=== PATIENT | male | born 1950 | race Caucasian/White ===

== ENCOUNTER 2020-11-19 23:01 | Inpatient (IN) | payer MEDICARE, OTHER ==
[~2020-11-19] VITALS: Ht 185.4 cm; Wt 167.8 kg
[2020-11-21] MEDS ORDERED: SIMVASTATIN20 MG PO (01:44)
[2020-11-21] MEDS ORDERED: SERTRALINE HCL50 MG PO (01:44)
[2020-11-21] MEDS ORDERED: FLONASE 0.05% N16 GM (01:45)
[2020-11-21] MEDS ORDERED: MELOXICAM15 MG PO (01:45)
[2020-11-21] MEDS ORDERED: FUROSEMIDE40 MG PO (01:45)
[2020-11-21] MEDS ORDERED: AMLODIPINE BESY10 MG PO (01:45)
[2020-11-21] MEDS ORDERED: MICRO-K EXTENCA8 MEQ PO (01:45)
[2020-11-21] MEDS ORDERED: BISOPROLOL-HCT1 EAC1 PO (01:46)
[2020-11-21] MEDS ORDERED: DESYREL 50 MG T50 MG PO (01:46)
--- NOTE | 2020-11-21 02:18 | NUR ---
AT 0100 UPON ASSESSMENT OF PT UPON ARRIVAL TO THE FACILITY, VS OBTAINED WAS BP 189/53, PULSE RANGING FROM 38-65, RR 26, TEMP 98.1 ORALLY, AND O2 SAT 74% ON HFNC AT 15 L/MIN. IMMEDIATELY NOTIFIED. ORDERS TO OBTAIN STAT EKG, PLACE ON CONTINUOUS TELE/PULSE OX MONITORING, AND PLACE ON AIRVO. MD STATED TO LET HIM KNOW O2 SAT ON AIRVO. MD THEN ALERTED THAT O2 WAS ONLY 87-91% MAXED OUT ON AIRVO AT 60 L/MIN AT 95% FiO2. STATED HE WAS COMING TO THE FLOOR TO EVALUATE PT. WHEN MD ARRIVED TO FLOOR, MD WAS GIVEN EKG FOR INTERPRETATION, MD WAS INFORMED THAT PT STATED HE HAD NOT TAKEN LASIX SINCE "LAST TUESDAY". WCTM. SEE MD ORDERS FOR MORE INFO
[2020-11-21 03:43] LABS: HEMOGLOBIN 15.9 gm/dl (14.0-17.5); RED BLOOD COUNT 5.39 M/UL (4.20-5.50); WHITE BLOOD COUNT 17.7 K/UL (4.5-11.0)
--- NOTE | 2020-11-21 12:21 | NUR ---
PT EATING LUNCH. O2 82% PER TELE. PATIENT REFUSES TO HAVE BIPAP PLACED BACK ON UNTIL HE FINISHED EATING DESPITE BEING EDUCATED ON THE IMPORTANCE OF MAINING GOOD SATURATION AND OXYGENATION THROUGHOUT THE BODY. RT HAS ALSO EDUCATED THE PT ON THIS AND MD IS AWARE. SHANNAN.
[2020-11-22 03:33] LABS: HEMOGLOBIN 16.4 gm/dl (14.0-17.5); RED BLOOD COUNT 5.58 M/UL (4.20-5.50); WHITE BLOOD COUNT 15.7 K/UL (4.5-11.0)
[2020-11-23 05:46] LABS: HEMOGLOBIN 15.3 gm/dl (14.0-17.5); RED BLOOD COUNT 5.07 M/UL (4.20-5.50); WHITE BLOOD COUNT 16.5 K/UL (4.5-11.0)
[2020-11-24 07:44] LABS: HEMOGLOBIN 15.1 gm/dl (14.0-17.5); RED BLOOD COUNT 4.88 M/UL (4.20-5.50)
[2020-11-24 07:53] LABS: WHITE BLOOD COUNT 30.8 K/UL (4.5-11.0)
--- NOTE | 2020-11-24 12:33 | NUR ---
PT WEDDING BAND PLACED IN DENTURE CUP WITH PT LABEL AT BEDSIDE R/T SWELLING
[2020-11-25 05:24] LABS: HEMOGLOBIN 13.5 gm/dl (14.0-17.5); RED BLOOD COUNT 4.52 M/UL (4.20-5.50)
[2020-11-25 05:47] LABS: WHITE BLOOD COUNT 35.8 K/UL (4.5-11.0)
== END 2020-11-27 17:14 | disposition expired | DRG 207 ==
LOC: MED SURG 4 23:01 → M/S 11-21 00:59 → CCU 11-21 00:59 → PROG CARE 11-21 14:06 → CCU 11-22 20:35
PROVIDERS: Internal Medicine; Internal Medicine Nephrology; ADMIT Internal Medicine
PROC: 8E0ZXY6 Isolation (ICD-10-PCS; 2020-11-21)
PROC: XW033E5 Introduction of Remdesivir Anti-infective into Peripheral Vein, Percutaneous Approach, New Technology Group 5 (ICD-10-PCS; 2020-11-21)
PROC: 3E0333Z Introduction of Anti-inflammatory into Peripheral Vein, Percutaneous Approach (ICD-10-PCS; 2020-11-21)
PROC: 0DH67UZ Insertion of Feeding Device into Stomach, Via Natural or Artificial Opening (ICD-10-PCS; 2020-11-21)
PROC: B24BZZZ Ultrasonography of Heart with Aorta (ICD-10-PCS; 2020-11-21)
PROC: XW033H5 Introduction of Tocilizumab into Peripheral Vein, Percutaneous Approach, New Technology Group 5 (ICD-10-PCS; 2020-11-21)
PROC: 0BH18EZ Insertion of Endotracheal Airway into Trachea, Via Natural or Artificial Opening Endoscopic (ICD-10-PCS; principal; 2020-11-22)
PROC: 5A1955Z Respiratory Ventilation, Greater than 96 Consecutive Hours (ICD-10-PCS; principal; 2020-11-22)
PROC: 06HY33Z Insertion of Infusion Device into Lower Vein, Percutaneous Approach (ICD-10-PCS; 2020-11-27)
PROC: 5A1D70Z Performance of Urinary Filtration, Intermittent, Less than 6 Hours Per Day (ICD-10-PCS; 2020-11-27)
PROC: 3E033XZ Introduction of Vasopressor into Peripheral Vein, Percutaneous Approach (ICD-10-PCS; 2020-11-27)
DX: U07.1 COVID-19 (principal); J12.82 Pneumonia due to coronavirus disease 2019; J80 Acute respiratory distress syndrome; J15.9 Unspecified bacterial pneumonia; A41.9 Sepsis, unspecified organism; R65.20 Severe sepsis without septic shock; E87.1 Hypo-osmolality and hyponatremia; N17.9 Acute kidney failure, unspecified; E87.2 Acidosis; J98.11 Atelectasis; J44.0 Chronic obstructive pulmonary disease with (acute) lower respiratory infection; Z68.42 Body mass index [BMI] 45.0-49.9, adult; E66.2 Morbid (severe) obesity with alveolar hypoventilation; I13.0 Hypertensive heart and chronic kidney disease with heart failure and stage 1 through stage 4 chronic kidney disease, or unspecified chronic kidney disease; I50.32 Chronic diastolic (congestive) heart failure; Z51.5 Encounter for palliative care; Z66 Do not resuscitate; Z23 Encounter for immunization; I87.8 Other specified disorders of veins; E87.5 Hyperkalemia; E78.5 Hyperlipidemia, unspecified; N18.9 Chronic kidney disease, unspecified; R73.03 Prediabetes; R73.9 Hyperglycemia, unspecified; Z90.49 Acquired absence of other specified parts of digestive tract; Z88.0 Allergy status to penicillin; Z88.2 Allergy status to sulfonamides; Z83.3 Family history of diabetes mellitus; Z98.890 Other specified postprocedural states; Z79.4 Long term (current) use of insulin
CPT/HCPCS: ECHO; 31500; 36415; 36600; 71045; 80048; 80053; 80202; 82009; 82533; 82570; 82803; 82962; 83036; 83735; 83880; 84132; 84133; 84156; 84300; 85007; 85025; 85027; 85379; 86140; 89050; 93005; 93306; 93970; 94002; 94003; 94640; 94660; 94664; 94760; C1752; C9113; J0330; J0461; J0692; J1100; J1205; J1644; J1650; J1940; J1956; J2370; J2405; J2704; J3010; J3370; J7030; J7050; J7070; P9047; Q0249